=== PATIENT | female | born 1930 | race American Indian/Alaskan Native ===

== ENCOUNTER 2019-05-28 12:56 | Emergency (ER) | payer MEDICARE ==
[2019-05-28 13:22] VITALS: BP 149/60
--- NOTE | 2019-05-28 13:22 | Event Note ---
ED Screening Note Date of service: 05/28/19 Time: 13:18 ED Screening Note: c/o episode of confusion x about 8:30 this morning sent by PCP episode lasted about 30 minutes c/o right sided head pain x this morning states urine is foaming Labs This initial assessment/diagnostic orders/clinical plan/treatment(s) is/are subject to change based on patients health status, clinical progression and re- assessment by fellow clinical providers in the ED. Further treatment and workup at subsequent clinical providers discretion. Patient/guardian urged not to elope from the ED as their condition may be serious if not clinically assessed and managed. Initial orders include: Labs EKG CXR CT
--- NOTE | 2019-05-28 14:23 | XRay Report ---
CHEST 2 VIEWS INDICATION / CLINICAL INFORMATION: Confusion. TIA. COMPARISON: None available. FINDINGS: SUPPORT DEVICES: None. HEART / MEDIASTINUM: The heart size and pulmonary vasculature are normal. There are diffuse atheroscl erotic calcifications involving aorta without aneurysm. LUNGS / PLEURA: The lungs are mildly hyperinflated, but near. No pneumothorax. ADDITIONAL FINDINGS: No significant additional findings. IMPRESSION: No acute findings. Emphysema. Signer Name: Ryan Mario MD Signed: 05/28/2019 2:19 PM Workstation Name: [id number]
[2019-05-28 15:49] LABS: Basophils % (Auto) 0.5 % (0.0-1.8); Eosinophils % (Auto) 0.7 % (0.0-4.3); Hematocrit 40.1 % (30.3-42.9); Lymphocytes # (Auto) 1.2 K/mm3 (1.2-5.4); Lymphocytes % (Auto) 22.5 % (13.4-35.0); Mean Corpuscular HGB Conc 32 % (30-34); Mean Corpuscular Volume 91 fl (79-97); Monocytes # (Auto) 0.3 K/mm3 (0.0-0.8); Monocytes % (Auto) 5.6 % (0.0-7.3); Platelet Count 275 K/mm3 (140-440); Red Blood Count 4.44 M/mm3 (3.65-5.03)
[2019-05-28 16:12] LABS: Alanine Aminotransferase 15 units/L (7-56); Albumin 4.6 g/dL (3.9-5); BUN/Creatinine Ratio 20; Blood Urea Nitrogen 34 mg/dL (7-17); Calcium 10.1 mg/dL (8.4-10.2); Hemolysis Index 18
[2019-05-28 16:14] LABS: Bilirubin,Urine NEG (Negative); Blood,Urine SM (Negative); Color,Urine Yellow (Yellow); Mucus,Urine FEW /HPF; Urobilinogen,Urine < 2.0 mg/dL (<2.0)
[2019-05-28 16:15] LABS: Protein,Urine >500 mg/dL (Negative)
--- NOTE | 2019-05-28 18:33 | Cat Scan Report ---
CT head/brain wo con INDICATION / CLINICAL INFORMATION: 89 years Female; confusion. TECHNIQUE: Routine CT head without contrast. All CT scans at this location are performed using CT dos e reduction for ALARA by means of automated exposure control. COMPARISON: None. FINDINGS: BRAIN / INTRACRANIAL CONTENTS: Surprisingly little atrophy present, given the patient's age. Small focus of high attenuation seen in the left sylvian fissure, most likely related to calcificatio n along a left MCA branch. No acute hemorrhage, mass effect, midline shift, hydrocephalus, or acute, large territorial infarct. No chronic infarct or atrophy appreciated. There are mild areas of decreased attenuation in the white matter of the cerebral hemispheres, as wel l as the gangliocapsular regions. These are nonspecific findings and may be related to microangiopath y (hypertension, diabetes, atherosclerosis), given the patient's age. CRANIOCERVICAL JUNCTION: No significant abnormality. ORBITS: No significant abnormality of visualized orbits. SINUSES / MASTOIDS: No significant abnormality the visualized paranasal sinuses or mastoid air cells. ADDITIONAL FINDINGS: Atherosclerotic disease is seen in the anterior and posterior circulation. IMPRESSION: 1. No focal mass, hemorrhage, hydrocephalus, or acute, large territorial infarct. Signer Name: Jose Perez MD, III Signed: 05/28/2019 6:28 PM Workstation Name: [id number]
--- NOTE | 2019-05-28 19:37 | Emergency Department Report ---
ED General Adult HPI - General Chief complaint: Neuro Symptoms/Deficit Stated complaint: TIA Time Seen by Provider: 05/28/19 13:17 Source: patient, family Mode of arrival: Wheelchair Limitations: No Limitations - History of Present Illness Initial comments: 89-year-old female presents to the ED after having an episode of mental status this morning. Daughter states this morning, she woke patient and patient seemed confused and was minimally responsive. Daughter states this lasted for approximately 1 hour, then she took patient to another family member's house. By that time, patient was back to her baseline. She then went to see her primary care physician who advised her to come to the ER for possible TIA. She currently has no complaints. Denies headache. Family states patient is currently at her baseline. Speech is clear, patient denies weakness or numbness. -: This morning Consistency: now resolved Improves with: none Worsens with: none Associated Symptoms: confusion. denies: chest pain, fever/chills, headaches, nausea/vomiting, shortness of breath, syncope Treatments Prior to Arrival: none - Related Data Previous Rx's Medication Instructions Recorded Last Taken Type Sulfamethoxazole/Trimethoprim 1 each PO BID 3 Days #6 tablet 05/28/19 Unknown Rx [Bactrim DS TAB] ED Review of Systems ROS: Stated complaint: TIA Other details as noted in HPI Comment: All other systems reviewed and negative Constitutional: denies: chills, fever Respiratory: denies: cough, shortness of breath Cardiovascular: denies: chest pain Gastrointestinal: denies: abdominal pain, vomiting, diarrhea Neurological: denies: headache, weakness, numbness, vertigo ED Past Medical Hx - Social History Smoking Status: Never Smoker Substance Use Type: None - Medications Home Medications: Home Medications Medication Instructions Recorded Confirmed Last Taken Type Sulfamethoxazole/Trimethoprim 1 each PO BID 3 Days #6 tablet 05/28/19 Unknown Rx [Bactrim DS TAB] ED Physical Exam - General Limitations: No Limitations General appearance: alert, in no apparent distress - Head Head exam: Present: atraumatic, normocephalic - Eye Eye exam: Present: normal appearance, EOMI - ENT ENT exam: Present: mucous membranes moist - Neck Neck exam: Present: normal inspection, full ROM - Respiratory Respiratory exam: Present: normal lung sounds bilaterally. Absent: respiratory distress - Cardiovascular Cardiovascular Exam: Present: regular rate, normal rhythm - GI/Abdominal GI/Abdominal exam: Present: soft. Absent: distended, tenderness - Extremities Exam Extremities exam: Present: normal inspection - Neurological Exam Neurological exam: Present: alert, oriented X3, CN II-XII intact, normal gait, other (NIHSS= 0). Absent: motor sensory deficit - Psychiatric Psychiatric exam: Present: normal affect, normal mood - Skin Skin exam: Present: warm, dry, intact, normal color ED Course Vital Signs 05/28/19 13:20 Temperature 98.3 F Pulse Rate 73 Respiratory 18 Rate Blood Pressure 149/60 ED Medical Decision Making - Lab Data Result diagrams: 05/28/19 14:47 05/28/19 14:47 - EKG Data -: EKG Interpreted by Me EKG shows normal: sinus rhythm, axis, intervals, QRS complexes, ST-T waves Rate: normal - EKG Data Interpretation: nonspecific ST-T wave alta - Radiology Data Radiology results: report reviewed, image reviewed - Medical Decision Making - pt ambulated to bathroom w/o difficulty - had discussion with pt and family (2 daughters and 1 granddaughter); they decline admission at this time - explained that it could have been a TIA which could possibly be a warning sign to a full stroke - explained admission would include further workup including MRI, they still decline admission - UA shows mild UTI, will treat w/ antibiotics - advised to call 911 immediately if symptoms occur again - outpt f/u advised w/ PCP - Differential Diagnosis TIA, infection, electrolyte abnormality Critical care attestation.: If time is entered above; I have spent that time in minutes in the direct care of this critically ill patient, excluding procedure time. ED Disposition Clinical Impression: UTI (urinary tract infection), Mental status alteration Disposition: DC-01 TO HOME OR SELFCARE Is pt being admited?: No Condition: Stable Instructions: Urinary Tract Infection in Women (ED), Altered Mental Status (ED) Prescriptions: Sulfamethoxazole/Trimethoprim [Bactrim DS TAB] 1 each PO BID 3 Days #6 tablet Referrals: PRIMARY CARE, [Referring] - 2-3 Days Forms: Accompanied Note Time of Disposition: 19:38
== END 2019-05-28 20:53 | disposition home or self-care (01) ==
LOC: ED 12:56
DX: N39.0 Urinary tract infection, site not specified (principal); R41.82 Altered mental status, unspecified; Z79.899 Other long term (current) drug therapy
CPT/HCPCS: 36415; 70450; 71046; 80053; 81001; 84484; 85025; 87086; 93005; 93010